=== PATIENT | male | born 1945 | race Caucasian/White ===

== ENCOUNTER 2019-03-06 15:14 | Inpatient (IN) | payer OTHER ==
[~2019-03-06] VITALS: Ht 182.9 cm; Wt 181.4 kg
--- NOTE | 2019-03-06 15:20 | NUR ---
PATIENT BIBA TO BED 9 AT THIS TIME.
[2019-03-06 15:29] VITALS: BP 125/47
--- NOTE | 2019-03-06 15:30 | NUR ---
C/O SHORET OF BREATH, GETTING WORSE X 1 WEEK. OBESE,HOME O2. PATIENT ABLE TO AMBULATE FROM GURNEY TO BED.POX 95% R/A, 96% WITH 2LNC. HX: CHF,DM,AZ,INTERNAL DEFIBRILLATOR,HTN. . DENIES N/V/D; SKIN IS PINK/WARM/DRY; AAOX4.RIGHT SIDE LUNGS DIMINISHED ; HR EVEN AND REGULAR; PT DENIES ANY FEVER, CP, OR COUGH AT THIS TIME; PATIENT STATES PAIN OF 0/10 AT THIS TIME; VSS; PATIENT POSITIONED FOR COMFORT; HOB ELEVATED; BEDRAILS UP X2; BED DOWN. ER MD MADE AWARE OF PT STATUS.
[2019-03-06 16:29] LABS: BASOPHILS % (AUTO) 0.4 % (0.0-2.0); EOSINOPHILS % (AUTO) 0.4 % (0.0-4.0); HEMATOCRIT 35.5 % (36-52); HEMOGLOBIN 11.4 g/dL (12.0-18.0); LYMPHOCYTES # (AUTO) 0.6 K/uL (2.0-11.5); LYMPHOCYTES % (AUTO) 13.5 % (20.5-51.1); MEAN CORPUSCULAR HEMOGLOBIN 28 pg (27-31); MEAN CORPUSCULAR HGB CONC 32 g/dL (33-37); MEAN CORPUSCULAR VOLUME 86.4 fL (80-94); MONOCYTES # (AUTO) 0.4 K/uL (0.8-1.0); MONOCYTES % (AUTO) 7.9 % (1.7-9.3); NEUTROPHILS # (AUTO) 3.5 K/uL (1.8-7.7); NEUTROPHILS % (AUTO) 77.8 % (42.2-75.2); PLATELET COUNT (AUTO) 198 K/uL (140-450); RED BLOOD CELL COUNT(AUTO) 4.12 MIL/uL (4.20-6.10); RED CELL DISTRIBUTION WIDTH 16.9 % (11.6-13.7); WHITE BLOOD COUNT (AUTO) 4.5 K/uL (4.8-10.8)
[2019-03-06 16:40] LABS: ANION GAP 11.9 (8-16); CHLORIDE 104 mmol/L (98-107); CREATININE 1.9 mg/dL (0.7-1.3); GLUCOSE 118 mg/dL (74-106); POTASSIUM 3.9 mmol/L (3.5-5.1); SODIUM SERUM 140 mmol/L (136-145); UREA NITROGEN, BLOOD 31 mg/dL (7-18)
[2019-03-06 16:52] LABS: ALBUMIN 2.7 g/dL (3.4-5.0); ASPARTATE AMINOTRANSFERASE 20 U/L (15-37); TOTAL BILIRUBIN 1.3 mg/dL (0.0-1.0)
--- NOTE | 2019-03-06 16:52 | NUR ---
PT STATED HE DOES NOT FEEL SOB AT THIS MOMENT
[2019-03-06 16:55] LABS: PROTHROMBIN TIME 38.7 secs (10.8-13.4)
[2019-03-06] MEDS ORDERED: BUMETANIDE 1 MG/4 ML VIAL IV ONE (17:35)
[2019-03-06] MEDS ORDERED: ASPIRIN 81 MG TAB.CHEW PO ONE (18:10)
[2019-03-06] MEDS ORDERED: ZOLPIDEM 5 MG TAB PO PRN (18:15)
--- NOTE | 2019-03-06 19:10 | NUR ---
ENDORSED CARE TO PM NURSE MAHESH HUTTON.
--- NOTE | 2019-03-06 19:21 | NUR ---
I CALLED PATIENTS DAUGHTER MAC ([phone]) AND LEFT A MESSAGE TO LET HER KNOW THAT PATIENT IS BEING ADMITTED TO TELEMETRY 126-B
--- NOTE | 2019-03-06 19:45 | NUR ---
ADMITTED PATIENT 73 MALE FROM ER, CAME FOR ER BY LETICIA. PATIENT AMBULATED TO BED FROM [facility] USING CANE, RECEIVED BEDSIDE REPORT, PATIENT SOB DURING AMBULATION, AWAKE ALERT ORIENTED, VITAL SIGNS STABLE, HEP LOCK IN LEFT AC 20 GAUGE, DRESSING INTACT. ORIENTED PATIENT TO UNIT AND ROOM, PLACED IN POSITION OF COMFORT, BED IN LOW POSITION, CALL LIGHT AND PERSONAL BELONGINGS IN REACH.
--- NOTE | 2019-03-06 19:48 | NUR ---
Patient will be admitted to care of DR. LEE. Admited to TELEMETRY. Will go to room 126B. Belongings list completed. Report to RN. Addendum: 03/06/19 at 8 by [email or web address] PT VSS UPON TRANSFER TO FLOOR
[2019-03-06 20:22] LABS: THYROID STIMULATING HORMONE 8.2 uIU/mL (0.34-3.74)
[2019-03-06] MEDS: CARVEDILOL 3.125 MG TAB PO SCH (20:53)
--- NOTE | 2019-03-06 21:45 | NUR ---
PATIENT ON BIPAP AT HOME FOR SLEEP APNEA, HAS A HISTORY OF DIABETES, AND ABNORMAL COAGULATION LABS. PAGED DR. LEE TO REVIEW NEED FOR ADDITIONAL ORDERS.
--- NOTE | 2019-03-06 21:56 | NUR ---
DR. LEE CALLED BACK. MADE HIM AWARE OF PATIENT HISTORY AND CURRENT LAB VALUES. ADDITIONAL ORDERS PLACED. Addendum: 03/07/19 at 0024 by Porsche Rosario RN PER DR. LEE HOLD HEPARIN AND WARFARIN DUE TO COAGULATION LAB VALUES.
[2019-03-06] MEDS ORDERED: HYDROcodone/APAP 5/325 MG 1 TAB TAB PO PRN (22:00)
--- NOTE | 2019-03-06 23:15 | NUR ---
PLACED CONDOM CATHETER PER ORDER. PATIENT TOLERATED WELL. WILL CONTINUE TO MONITOR.
--- NOTE | 2019-03-06 23:45 | NUR ---
PATIENT PLACED ON BIPAP PER ORDER. SKIN GEL IN PLACE. CONTINUOUS PULSE OX ON PATIENT. NO RESPIRATORY DISTRESS NOTED AT THIS TIME. WILL CONTINUE TO MONITOR.
[2019-03-07] VITALS (7 sets, daily range): BP systolic 107–140; BP diastolic 39–68
--- NOTE | 2019-03-07 01:30 | NUR ---
PATIENT SLEEPING WITH BIPAP ON. NO SIGNS OF DISTRESS. WILL CONTINUE TO MONITOR.
--- NOTE | 2019-03-07 03:47 | NUR ---
PATIENT SLEEPING. WILL CONTINUE TO MONITOR.
--- NOTE | 2019-03-07 04:01 | NUR ---
BIPAP CHECK DONE. PATIENT QUIETLY SLEEPING. NO DISTRESS NOTED AT THIS TIME. WILL CONTINUE TO MONITOR.
--- NOTE | 2019-03-07 04:58 | NUR ---
CONDOM CATHETER LEAKED, UNABLE TO GET A GOOD SEAL DUE TO PATIENT ANATOMY. WILL ASSIST PATIENT WITH URINAL
--- NOTE | 2019-03-07 05:30 | NUR ---
PT ABLE TO VOID ON THE URINAL @200 ML. URINAL PLACED WITHIN EASY REACH.
[2019-03-07] MEDS: BLOOD GLUCOSE MONITORING 1 DEV DEV FS SCH ×4 (06:09→20:35)
--- NOTE | 2019-03-07 07:10 | NUR ---
RECEIVED PT REPORT FROM INFORMATICS SPEC NURSE AT BEDSIDE, PT IS AWAKE AND ALERT, CURRENTLY ON HIS BIPAP. NO S/S OF ACUTE DISTRESS OR SOB NOTED. FALL PRECAUTIONS IN PLACE. R ELBOW SCAR AND R LEG REDNESS NOTED, OTHERWISE SKIN IS INTACT. IV SITE NOTED ON THE LAC 20 G, SALINE LOCKED. PT IS ON 1500 ML FLUID RESTRICTION. CALL LIGHT IS WITHIN REACH. WILL CONTINUE TO MONITOR.
--- NOTE | 2019-03-07 07:33 | NUR ---
GAVE BEDSIDE REPORT TO DAY SHIFT RN, ENDORSED TO DAY SHIFT FOR CONTINUITY OF CARE. PATIENT SITTING UP IN BED NO SIGNS OF DISTRESS ON 1 L O2 NC.
--- NOTE | 2019-03-07 08:09 | NUR ---
PATIENT HAS BEEN SCREENED AND CATEGORIZED HIGH NUTRITION RISK. PATIENT WILL BE SEEN WITHIN 1-2 DAYS OF ADMISSION. 03/07/19-03/08/[address]
[2019-03-07 08:43] LABS: BASOPHILS % (AUTO) 0.6 % (0.0-2.0); EOSINOPHILS % (AUTO) 0.8 % (0.0-4.0); HEMATOCRIT 34.1 % (36-52); LYMPHOCYTES # (AUTO) 0.8 K/uL (2.0-11.5); LYMPHOCYTES % (AUTO) 20.8 % (20.5-51.1); MEAN CORPUSCULAR HEMOGLOBIN 28 pg (27-31); MEAN CORPUSCULAR HGB CONC 32 g/dL (33-37); MEAN CORPUSCULAR VOLUME 86.3 fL (80-94); MONOCYTES # (AUTO) 0.5 K/uL (0.8-1.0); MONOCYTES % (AUTO) 12.3 % (1.7-9.3); NEUTROPHILS # (AUTO) 2.7 K/uL (1.8-7.7); NEUTROPHILS % (AUTO) 65.5 % (42.2-75.2); PLATELET COUNT (AUTO) 186 K/uL (140-450); RED BLOOD CELL COUNT(AUTO) 3.95 MIL/uL (4.20-6.10); RED CELL DISTRIBUTION WIDTH 17.2 % (11.6-13.7); WHITE BLOOD COUNT (AUTO) 4.1 K/uL (4.8-10.8)
[2019-03-07 08:58] LABS: ALBUMIN 2.8 g/dL (3.4-5.0); ANION GAP 9.4 (8-16); ASPARTATE AMINOTRANSFERASE 26 U/L (15-37); CARBON DIOXIDE 30.4 mmol/L (21-32); CHLORIDE 102 mmol/L (98-107); CREATININE 1.8 mg/dL (0.7-1.3); GLUCOSE 128 mg/dL (74-106); POTASSIUM 3.8 mmol/L (3.5-5.1); SODIUM SERUM 138 mmol/L (136-145); TOTAL BILIRUBIN 1.1 mg/dL (0.0-1.0); UREA NITROGEN, BLOOD 31 mg/dL (7-18)
[2019-03-07] MEDS: DOCUSATE SODIUM 100 MG GELCAP PO SCH (08:59)
[2019-03-07] MEDS: CARVEDILOL 3.125 MG TAB PO SCH (08:59)
[2019-03-07] MEDS: FUROSEMIDE 40 MG/4 ML VIAL IVP SCH ×3 (08:59→20:28)
--- NOTE | 2019-03-07 09:08 | NUR ---
AM MEDS ADMINISTERED, PT TOLERATED WELL. SUBQ HEPARIN HELD DUE TO HIGH PT AND INR VALUES.
--- NOTE | 2019-03-07 12:14 | NUR ---
PT HAVING ECHOCARDIOGRAM AT THIS TIME
--- NOTE | 2019-03-07 12:27 | NUR ---
ATTEMPTED ECHOCARDIOGRAM ON PT. UNABLE TO OBTAIN OPTIMAL/DIAGNOSTIC IMAGES.
[2019-03-07] MEDS ORDERED: WARF-18 PO (13:15)
[2019-03-07] MEDS ORDERED: FURO-572 PO (13:15)
[2019-03-07] MEDS ORDERED: LEVO0.0216 PO (13:15)
[2019-03-07] MEDS ORDERED: TAMS0.4C96 PO (13:15)
[2019-03-07] MEDS ORDERED: GLIP10TA3 PO (13:15)
[2019-03-07] MEDS ORDERED: CARV6.25 PO (13:15)
[2019-03-07] MEDS ORDERED: TRAM50TA1 PO (13:15)
[2019-03-07] MEDS ORDERED: MAGN500T6 PO (13:15)
[2019-03-07] MEDS ORDERED: ATOR40TA PO (13:15)
[2019-03-07] MEDS ORDERED: CARV12.5 PO (13:15)
[2019-03-07] MEDS ORDERED: ALLO100T21 PO (13:15)
--- NOTE | 2019-03-07 13:22 | NUR ---
DR TONG AWARE OF POOR QUALITY OF PT'S ECHO IMAGES.
--- NOTE | 2019-03-07 13:30 | NUR ---
PT SEEN BY DR TONG
--- NOTE | 2019-03-07 13:36 | NUR ---
03/07/19 RD INITIAL ASSESSMENT COMPLETED PLEASE REFER TO NUTRITION ASSESSMENT UNDER CARE ACTIVITY FOR ESTIMATED NUTRITIONAL NEEDS. 1. CONTINUE CARDIAC DIET TOLERATED 2. RD PROVIDED NUTRITION EDUCATION ON 2 GRAM SODIUM RESTRICTED DIET FOR CHF. PT ACCEPTED EDUCATION 3. RD TO FOLLOW-UP 5-7 DAYS, LOW RISK MICHAEL CHUN RD
[2019-03-07] MEDS ORDERED: traMADol 50 MG TAB PO PRN (13:45)
[2019-03-07] MEDS ORDERED: INSULIN LISPRO SLIDING SCALE 100 UNITS/ML VIAL SUBQ PRN (13:45)
[2019-03-07] MEDS ORDERED: DEXTROSE 50% 50 ML SYR IVP PRN (13:45)
[2019-03-07 14:39] LABS: PROTHROMBIN TIME 37.8 secs (10.8-13.4)
[2019-03-07] MEDS ORDERED: BLOOD GLUCOSE MONITORING 1 DEV DEV FS SCH (16:30)
--- NOTE | 2019-03-07 17:15 | NUR ---
PT'S BLOOD GLUCOSE IS 120, NO COVERAGE NEEDED. PT ATE 90% OF HIS DINNER.
--- NOTE | 2019-03-07 19:20 | NUR ---
HI ENDORSED TO TAP DANCER IN STABLE CONDITION.
--- NOTE | 2019-03-07 19:30 | NUR ---
RECEIVED BEDSIDE REPORT FROM DAY SHIFT RN, PATIENT RESTING IN BED, ON RA, NO SIGNS OF ACUTE DISTRESS, IV IN LEFT AC 20G SL, EXPLAINED PLAN OF CARE, WILL CONTINUE TO MONITOR.
--- NOTE | 2019-03-07 20:19 | NUR ---
HELP SQ HEPARIN ACCORDING TO DR JESUS RODRIGUEZ
[2019-03-07] MEDS: INSULIN LISPRO SLIDING SCALE 100 UNITS/ML VIAL SUBQ PRN (20:35)
--- NOTE | 2019-03-07 21:45 | NUR ---
RT AT BEDSIDE, PATIENT AWAKE, NO SIGNS OF DISTRESS.
--- NOTE | 2019-03-07 22:00 | NUR ---
AWAKE AND ALERT VERBALLY RESPONSIVE SITTING ON SIDE OF BED SATURATION 95% ON ROOM AIR HR 65 OFF BIPAP AT THIS TIME ADVISOR TO COMMAND IN COMBAT TO MONITOR
--- NOTE | 2019-03-07 23:53 | NUR ---
SLEEPING IN BED NO SIGNS OF DISTRESS, CALL LIGHT WITHIN REACH, HAS BIPAP ON.
--- NOTE | 2019-03-08 00:59 | NUR ---
PATIENT AWAKE, SITTING ON BEDSIDE, OFFERED 2 PILLOWS TO HELP SLEEP. CALL LIGHT WITHIN REACH
--- NOTE | 2019-03-08 01:50 | NUR ---
OFFERED BLANKET TO HELP SLEEP
--- NOTE | 2019-03-08 02:52 | NUR ---
RESTING IN BED NO SIGNS OF DISTRESS.
[2019-03-08 04:00] VITALS: BP 107/64
--- NOTE | 2019-03-08 04:23 | NUR ---
V/S TAKEN ALL WITHIN BASELINE, DENIES PAIN, ON BIPAP, WILL CONTINUE TO MONITOR.
[2019-03-08] MEDS: LEVOTHYROXINE 0.025 MG TAB PO SCH (05:28)
[2019-03-08] MEDS: FUROSEMIDE 40 MG/4 ML VIAL IVP SCH ×3 (05:28→20:00)
--- NOTE | 2019-03-08 05:56 | NUR ---
PATIENT SELF REMOVED FROM BIPAP TO MASK AND PLACED HIMSELF ON SUPPLEMENTAL OXYGEN AT 2 LPM VIA NC SATURATION 98% HR 60 BREATH SOUNDS DECREASED BILATERAL WITH GOOD CHEST RISE
[2019-03-08] MEDS: BLOOD GLUCOSE MONITORING 1 DEV DEV FS SCH ×4 (06:01→20:12)
--- NOTE | 2019-03-08 06:01 | NUR ---
DUE MEDICATIONS GIVEN, BG 133 NO COVERAGE NEEDED
[2019-03-08] MEDS ORDERED: LEVOTHYROXINE 0.025 MG TAB PO SCH (06:30)
--- NOTE | 2019-03-08 07:23 | NUR ---
ENDORSED PATIENT TO DAY SHIFT NURSE, PATIENT STABLE.
--- NOTE | 2019-03-08 07:24 | NUR ---
RECEIVED REPORT FROM PM NURSE SUMMER. PT SITTING UP AT EDGE OF BED. PT CHEERFUL, NO SIGNS OF DISTRESS. CALL LIGHT WITHIN REACH.
--- NOTE | 2019-03-08 07:30 | NUR ---
REVENUE DIRECTOR CATHY REPORTED BLEEDING ON PT UPON REMOVING TAPE FROM RIGHT FOREARM. INSPECTED SITE, NOTED SKIN TEAR 3.5 X 1.5 CM SKIN TEAR WITH MILD BLEEDING. SITE CLEANSED WITH NS PAT DRY, COVERED WITH VERSATEL DRESSING, AND DRY DRESSING. PT DENIES ANY PAIN TO SITE.
--- NOTE | 2019-03-08 07:45 | NUR ---
Received wound care orders from Dr. Worthy re: R forearm skin tear. Order noted & carried out.
[2019-03-08 08:05] VITALS: BP 127/68
[2019-03-08 08:25] LABS: BASOPHILS % (AUTO) 0.3 % (0.0-2.0); EOSINOPHILS # (AUTO) 0.1 K/uL (0-0.4); EOSINOPHILS % (AUTO) 1.2 % (0.0-4.0); HEMATOCRIT 35.9 % (36-52); HEMOGLOBIN 11.5 g/dL (12.0-18.0); LYMPHOCYTES # (AUTO) 1.1 K/uL (2.0-11.5); LYMPHOCYTES % (AUTO) 19.5 % (20.5-51.1); MEAN CORPUSCULAR HEMOGLOBIN 28 pg (27-31); MEAN CORPUSCULAR HGB CONC 32 g/dL (33-37); MEAN CORPUSCULAR VOLUME 86.6 fL (80-94); MONOCYTES # (AUTO) 0.6 K/uL (0.8-1.0); MONOCYTES % (AUTO) 11.1 % (1.7-9.3); NEUTROPHILS # (AUTO) 3.9 K/uL (1.8-7.7); NEUTROPHILS % (AUTO) 67.9 % (42.2-75.2); PLATELET COUNT (AUTO) 183 K/uL (140-450); RED BLOOD CELL COUNT(AUTO) 4.15 MIL/uL (4.20-6.10); RED CELL DISTRIBUTION WIDTH 17.4 % (11.6-13.7); WHITE BLOOD COUNT (AUTO) 5.8 K/uL (4.8-10.8)
[2019-03-08 08:28] LABS: PROTHROMBIN TIME 31.7 secs (10.8-13.4)
[2019-03-08 08:32] LABS: ALBUMIN 2.9 g/dL (3.4-5.0); ANION GAP 8.8 (8-16); ASPARTATE AMINOTRANSFERASE 24 U/L (15-37); CARBON DIOXIDE 31.1 mmol/L (21-32); CHLORIDE 102 mmol/L (98-107); CREATININE 1.8 mg/dL (0.7-1.3); GLUCOSE 140 mg/dL (74-106); POTASSIUM 3.9 mmol/L (3.5-5.1); SODIUM SERUM 138 mmol/L (136-145); TOTAL BILIRUBIN 0.9 mg/dL (0.0-1.0); UREA NITROGEN, BLOOD 32 mg/dL (7-18)
[2019-03-08] MEDS: DOCUSATE SODIUM 100 MG GELCAP PO SCH (08:38)
[2019-03-08] MEDS: ALLOPURINOL 100 MG TAB PO SCH (08:38)
[2019-03-08] MEDS: ATORVASTATIN 20 MG TAB PO SCH (08:38)
[2019-03-08] MEDS: CARVEDILOL 12.5 MG TAB PO SCH (08:39)
--- NOTE | 2019-03-08 08:42 | NUR ---
HEPARIN HELD DUE TO ELEVATED INR
[2019-03-08 12:29] VITALS: BP 125/53
--- NOTE | 2019-03-08 14:00 | NUR ---
Pt sitting up at edge of bed, no signs of distress, no c/o pain. Call light within reach.
[2019-03-08 17:25] VITALS: BP 146/65
[2019-03-08] MEDS: INSULIN LISPRO SLIDING SCALE 100 UNITS/ML VIAL SUBQ PRN ×2 (17:56→20:12)
--- NOTE | 2019-03-08 19:30 | NUR ---
HAD BEDSIDE REPORT FROM DAY SHIFT RN, PATIENT IN BED ON 2 L NC, V/S STABLE DENIES PAIN, NOTED REDNESS ON LEFT LEG, IV IN LEFT FA SL, EXPLAINED PLAN OF CARE, WILL CONTINUE TO MONITOR.
[2019-03-08 20:00] VITALS: BP 145/60
--- NOTE | 2019-03-08 20:00 | NUR ---
DUE MEDICATIONS GIVEN, HELP HEPARIN DUE TO MD ORDER
--- NOTE | 2019-03-08 22:30 | NUR ---
PATIENT SITTING IN BED, CALL LIGHT WITHIN REACH WILL CONTINUE TO MONITOR
[2019-03-09] VITALS: BP 130/60
--- NOTE | 2019-03-09 | NUR ---
SLEEPING IN BED NO SIGNS OF DISTRESS
--- NOTE | 2019-03-09 02:30 | NUR ---
SLEEPING IN BED NO SIGNS OF DISTRESS.
[2019-03-09 04:00] VITALS: BP 120/69
--- NOTE | 2019-03-09 05:13 | NUR ---
PT AWAKE ON 2L NC NO DISTRESS NOTED AT THIS TIME.
[2019-03-09] MEDS: FUROSEMIDE 40 MG/4 ML VIAL IVP SCH ×3 (05:28→21:43)
[2019-03-09] MEDS: LEVOTHYROXINE 0.025 MG TAB PO SCH (05:29)
[2019-03-09] MEDS: BLOOD GLUCOSE MONITORING 1 DEV DEV FS SCH ×4 (05:29→21:41)
--- NOTE | 2019-03-09 06:26 | NUR ---
DUE MEDICATIONS GIVEN
--- NOTE | 2019-03-09 07:25 | NUR ---
RECEIVED REPORT FROM PM NURSE AT BEDSIDE. PT SITTING ON HIS BED. PT ON BIPAP. PT AMBULATES WITH CANE, ON FALL RISK PRECAUTION. HAS RT ELBOW DRY SCAB, HAS BLE EDEMA AND SWOLLEN SCROTUM. PLACED CALL LIGHT WITHIN PT REACH , INFORMED TO USE CALL LIGHT FOR ANY HELP. PT PLACED ON FALL RISK. IV ACCESS ON RT WRIST. IVF INFUSING WELL. ALL SAFETY MEASURE IN PLACE. WILL CONTINUE TO MONITOR .
[2019-03-09 08:00] VITALS: BP 128/61
[2019-03-09 08:43] LABS: ALBUMIN 2.8 g/dL (3.4-5.0); ANION GAP 10.9 (8-16); ASPARTATE AMINOTRANSFERASE 23 U/L (15-37); CARBON DIOXIDE 31.8 mmol/L (21-32); CHLORIDE 103 mmol/L (98-107); CREATININE 1.7 mg/dL (0.7-1.3); GLUCOSE 113 mg/dL (74-106); POTASSIUM 3.7 mmol/L (3.5-5.1); SODIUM SERUM 142 mmol/L (136-145); UREA NITROGEN, BLOOD 33 mg/dL (7-18)
[2019-03-09 08:52] LABS: BASOPHILS % (AUTO) 0.2 % (0.0-2.0); EOSINOPHILS # (AUTO) 0.1 K/uL (0-0.4); EOSINOPHILS % (AUTO) 1.1 % (0.0-4.0); HEMATOCRIT 34.8 % (36-52); HEMOGLOBIN 11.1 g/dL (12.0-18.0); LYMPHOCYTES # (AUTO) 1.3 K/uL (2.0-11.5); MEAN CORPUSCULAR HEMOGLOBIN 27 pg (27-31); MEAN CORPUSCULAR HGB CONC 32 g/dL (33-37); MONOCYTES # (AUTO) 0.7 K/uL (0.8-1.0); MONOCYTES % (AUTO) 10.1 % (1.7-9.3); NEUTROPHILS # (AUTO) 5.2 K/uL (1.8-7.7); NEUTROPHILS % (AUTO) 70.6 % (42.2-75.2); PLATELET COUNT (AUTO) 198 K/uL (140-450); RED BLOOD CELL COUNT(AUTO) 4.04 MIL/uL (4.20-6.10); RED CELL DISTRIBUTION WIDTH 17.5 % (11.6-13.7); WHITE BLOOD COUNT (AUTO) 7.3 K/uL (4.8-10.8)
[2019-03-09 09:55] LABS: PROTHROMBIN TIME 28.1 secs (10.8-13.4)
[2019-03-09] MEDS: DOCUSATE SODIUM 100 MG GELCAP PO SCH (10:18)
[2019-03-09] MEDS: ATORVASTATIN 20 MG TAB PO SCH (10:19)
[2019-03-09] MEDS: CARVEDILOL 12.5 MG TAB PO SCH (10:19)
[2019-03-09] MEDS: ALLOPURINOL 100 MG TAB PO SCH (10:20)
--- NOTE | 2019-03-09 10:30 | NUR ---
ADMINISTERED MEDS TO PT ORDERED, STUDENT NURSE ADMINISTERED MEDS WITH INSTRUCTOR. PT TOLERATED WELL. PER PM NURSE, HEPARIN AND COUMADIN IF ORDERED TO BE HELD PER PHYSICIAN ORDER. NO SIGN OF DISTRESS NOTED. WILL CONTINUE TO MONITOR PT.
--- NOTE | 2019-03-09 11:39 | NUR ---
RECEIVED CALL FROM [facility]. UPDATED HER ON PTS CONDITION.
[2019-03-09 12:00] VITALS: BP 121/47
--- NOTE | 2019-03-09 14:01 | NUR ---
ADMINISTERED LASIX IV PUSH TO PT. TOLERATED WELL. SITTING ON THE SIDE OF THE BED. COMMUNICATING WELL. WILLCONTINUE TO MONITOR PT
[2019-03-09 16:00] VITALS: BP 119/52
[2019-03-09] MEDS: INSULIN LISPRO SLIDING SCALE 100 UNITS/ML VIAL SUBQ PRN ×2 (17:35→21:52)
--- NOTE | 2019-03-09 19:15 | NUR ---
ENDORSED PT TO PM NURSE AT BEDSIDE. PT IN STABLE CONDITION.
--- NOTE | 2019-03-09 19:20 | NUR ---
RECEIVED PT FROM MULU RN PT IS AAOX4 ON BED REST EDEMA ON BLE ON TELEMETRY SR NOT SOB NOTED , HL ON RT AC PATENT, INITIAL ASSESSMENT DONE
[2019-03-09 20:00] VITALS: BP 119/45
--- NOTE | 2019-03-09 21:30 | NUR ---
BLOOD SUGAR TEST 161 COVERAGE WITH 2 UNITS HUMALOG SUBQ FOLLOW PROTOCOL
[2019-03-10] VITALS: BP 113/45
--- NOTE | 2019-03-10 | NUR ---
PT ON BIPAP SLEEPING WELL NOT DISTRESS NOTE ON TELE SR
--- NOTE | 2019-03-10 02:09 | NUR ---
PT REPOSITIONED Q2H ON TELMETRY SR NOT SOB NOTED ON BIPAP SLEEPIN G WELL
[2019-03-10 04:00] VITALS: BP 126/56
--- NOTE | 2019-03-10 04:00 | NUR ---
PT REMAIN STABLE NOT SOB NOTED ON TELEMETRY NOT DISTRESS NOTED , REPOSITIONED Q2H
[2019-03-10] MEDS: FUROSEMIDE 40 MG/4 ML VIAL IVP SCH ×2 (05:19→12:19)
[2019-03-10] MEDS: LEVOTHYROXINE 0.025 MG TAB PO SCH (05:25)
[2019-03-10] MEDS: BLOOD GLUCOSE MONITORING 1 DEV DEV FS SCH ×2 (05:29→12:14)
--- NOTE | 2019-03-10 06:00 | NUR ---
BLOOD SUGAR TEST 125
--- NOTE | 2019-03-10 07:18 | NUR ---
PT WILL BE ENDORSED TO DAYS SHIFT NURSE FOR CONTINUE CARE
--- NOTE | 2019-03-10 07:26 | NUR ---
RECEIVED REPORT FROM PM NURSE AT BEDSIDE. PT SITTING ON HIS BED. PT ON 2L VIA N/C. PT AMBULATES WITH CANE, ON FALL RISK PRECAUTION. PLACED CALL LIGHT WITHIN PT REACH , INFORMED TO USE CALL LIGHT FOR ANY HELP. PT PLACED ON FALL RISK. IV ACCESS ON RT WRIST. IVF INFUSING WELL. ALL SAFETY MEASURE IN PLACE. WILL CONTINUE TO MONITOR .
[2019-03-10 08:00] VITALS: BP 135/70
[2019-03-10 09:31] LABS: BASOPHILS % (AUTO) 0.3 % (0.0-2.0); EOSINOPHILS # (AUTO) 0.1 K/uL (0-0.4); EOSINOPHILS % (AUTO) 0.9 % (0.0-4.0); HEMATOCRIT 32.7 % (36-52); HEMOGLOBIN 10.7 g/dL (12.0-18.0); LYMPHOCYTES # (AUTO) 1.2 K/uL (2.0-11.5); LYMPHOCYTES % (AUTO) 19.1 % (20.5-51.1); MEAN CORPUSCULAR HEMOGLOBIN 28 pg (27-31); MEAN CORPUSCULAR HGB CONC 33 g/dL (33-37); MONOCYTES # (AUTO) 0.6 K/uL (0.8-1.0); MONOCYTES % (AUTO) 9.3 % (1.7-9.3); NEUTROPHILS # (AUTO) 4.6 K/uL (1.8-7.7); NEUTROPHILS % (AUTO) 70.4 % (42.2-75.2); PLATELET COUNT (AUTO) 175 K/uL (140-450); RED BLOOD CELL COUNT(AUTO) 3.84 MIL/uL (4.20-6.10); RED CELL DISTRIBUTION WIDTH 17.2 % (11.6-13.7); WHITE BLOOD COUNT (AUTO) 6.5 K/uL (4.8-10.8)
[2019-03-10] MEDS: ALLOPURINOL 100 MG TAB PO SCH (09:35)
[2019-03-10] MEDS: ATORVASTATIN 20 MG TAB PO SCH (09:35)
[2019-03-10] MEDS: DOCUSATE SODIUM 100 MG GELCAP PO SCH (09:35)
[2019-03-10] MEDS: CARVEDILOL 12.5 MG TAB PO SCH (09:35)
--- NOTE | 2019-03-10 09:38 | NUR ---
ADMINISTERED MORNING MEDS TO PT. PT TOLERATED MEDS WELL. NO OTHER NEEDS AT THIS TIME. WILL CONTINUE TO ROUND FREQUENTLY ON PT. BED IN LOW POSITION, CALL LIGHT WITHIN REACH.
[2019-03-10 09:45] LABS: PROTHROMBIN TIME 24.4 secs (10.8-13.4)
[2019-03-10 09:53] LABS: ALBUMIN 2.6 g/dL (3.4-5.0); ANION GAP 10.2 (8-16); ASPARTATE AMINOTRANSFERASE 23 U/L (15-37); CARBON DIOXIDE 30.1 mmol/L (21-32); CHLORIDE 102 mmol/L (98-107); CREATININE 1.6 mg/dL (0.7-1.3); GLUCOSE 184 mg/dL (74-106); POTASSIUM 3.3 mmol/L (3.5-5.1); SODIUM SERUM 139 mmol/L (136-145); TOTAL BILIRUBIN 1.1 mg/dL (0.0-1.0); UREA NITROGEN, BLOOD 31 mg/dL (7-18)
--- NOTE | 2019-03-10 11:23 | NUR ---
RECEIVED ORDER FOR HOME HEALTH FOR P.T./ I CALLED LASHAE FROM [facility], . I TOLD HER I DIDN'T HAVE THE P.T. NOTES YET. SHE SAID JUST TO FAX THE FACE SHEET, ORDER, H&P AND DISCHARGE SUMMARY TO HER AT [phone], WHICH I DID.
--- NOTE | 2019-03-10 11:42 | NUR ---
PT RESTING IN BED WATCHING TV. ALL NEEDS CURRENTLY MET. NO COMPLAINTS OF PAIN OR DISTRESS. BED IN LOW POSITION, CALL LIGHT WITHIN REACH. WILL CONTINUE TO ROUND FREQUENTLY.
[2019-03-10 12:00] VITALS: BP 119/53
[2019-03-10] MEDS: INSULIN LISPRO SLIDING SCALE 100 UNITS/ML VIAL SUBQ PRN (12:21)
--- NOTE | 2019-03-10 13:12 | NUR ---
CALLED DR. MERARY KRISHNA'S OFFICE. MADE FOLLOW UP APPOINTMENT FOR 03/12/19 AT 1:45 P.M. [address]ESS [address], [address] [place] PHONE [phone]. GAVE THE PATIENT A COPY FOR THE APPOINTMENT.
--- NOTE | 2019-03-10 13:33 | NUR ---
RECEIVED A CALL FROM LASHAE FROM [employer]. THE HOME HEALTH FOR P.T. WILL BE BY [facility] Dress Code [phone]. LASHAE ALSO SAID HE MADE A FOLLOW UP APPOINTMENT WITH THE PATIENT'S [employer] MEMBER, DR. HUNT FOR Sunday03/14/19 AT 11:30A.M. PHONE [phone]. I INFORMED THE PATIENT.
--- NOTE | 2019-03-10 13:34 | NUR ---
PT SITTING AT BEDSIDE ON PHONE. ALL NEEDS CURRENTLY MET. WILL CONTINUE TO ROUND FREQUENTLY ON PT. BED IN LOWEST POSITION, CALL LIGHT WITHIN REACH.
--- NOTE | 2019-03-10 14:37 | NUR ---
PT DISCHARGED HOME FOR SELF CARE. PT DISCHARGE TEACHING GIVEN. PT VERBALIZED UNDERSTANDING OF TEACHING. PT WAS HANDED SHEETS WITH FOLLOW-UP APPOINTMENTS WRITTEN DOWN FOR HIS REFERENCE. RX WAS ALSO HANDED TO PT FOR HIM TO HAVE FILLED BY HIS PHARMACY. IV REMOVED WITH TIP INTACT. WRIST BANDS REMOVED AND PLACED IN SHRED BIN. PATIENT TOOK ALL PERSONAL BELONGINGS WITH HIM. PT WAS ALSO INSTRUCTED THAT HOME HEALTH WILL BE VISITING HIM. PT LEFT IN STABLE CONDITION AND ACCOMPANIED BY HIS DAUGHTER AND GRANDSON.
[2019-03-10] MEDS ORDERED: WARFARIN 1 MG TAB PO SCH (17:00)
== END 2019-03-10 14:37 | disposition home health service (06) | DRG 280 ==
LOC: MED 15:14 → MMU 18:32
PROVIDERS: ADMIT Internal Medicine Pulmonary Disease; ATTEND Internal Medicine Pulmonary Disease
PROC: 5A09357 Assistance with Respiratory Ventilation, Less than 24 Consecutive Hours, Continuous Positive Airway Pressure (ICD-10-PCS; principal; 2019-03-06)
PROC: 5A09357 Assistance with Respiratory Ventilation, Less than 24 Consecutive Hours, Continuous Positive Airway Pressure (ICD-10-PCS; 2019-03-09)
DX: I21.A1 Myocardial infarction type 2 (principal); I50.43 Acute on chronic combined systolic (congestive) and diastolic (congestive) heart failure; J96.21 Acute and chronic respiratory failure with hypoxia; Z68.43 Body mass index [BMI] 50.0-59.9, adult; E66.01 Morbid (severe) obesity due to excess calories; N50.89 Other specified disorders of the male genital organs; E03.9 Hypothyroidism, unspecified; E11.9 Type 2 diabetes mellitus without complications; G47.33 Obstructive sleep apnea (adult) (pediatric); I11.0 Hypertensive heart disease with heart failure; I48.91 Unspecified atrial fibrillation; J43.9 Emphysema, unspecified; J45.909 Unspecified asthma, uncomplicated; N40.0 Benign prostatic hyperplasia without lower urinary tract symptoms; Z79.01 Long term (current) use of anticoagulants; Z99.81 Dependence on supplemental oxygen; Z91.013 Allergy to seafood
CPT/HCPCS: 36415; 71045; 80053; 82948; 83036; 83540; 83721; 83735; 83880; 84443; 84484; 85025; 85610; 85730; 87081; 93005; 94660; 96374; 97161-GP; 99285; J1644; J1815; J1940; J3490; Q0092